=== PATIENT | female | born 1985 | race Caucasian/White ===

== ENCOUNTER 2016-09-21 12:47 | Emergency (ER) | payer SELFPAY ==
[2016-09-21] MEDS ORDERED: NORMAL SALINE 10 ML SYRINGE FLUSH IVP PRN (13:02)
[2016-09-21] MEDS ORDERED: ONDANSETRON 4 MG/2 ML VIAL IVP ONE (13:02)
[2016-09-21] MEDS ORDERED: Sodium Chloride 0.9% 1,000 ML PRIMARY IV ONE (13:02)
[2016-09-21] MEDS ORDERED: KETOROLAC 15 MG/1 ML VIAL IVP ONE (13:02)
[2016-09-21 13:07] VITALS: RESP 16; TEMP 97.1
--- NOTE | 2016-09-21 13:10 | PDOC ---
Abdomen/Flank HPI - General Chief Complaint: Abdomen Pain Stated Complaint: ONGOING RT SIDE ABD PAIN Date Seen by Provider: 09/21/16 Time Seen by Provider: 13:00 Source: POSITIVE: Patient Exam Limitations: POSITIVE: No limitations Nurse's Notes Reviewed & Considered: Yes - History of Present Illness Initial Comments: The patient is a 31-year-old female who presents to the emergency department with right upper quadrant abdominal pain. She states that intermittently over the past several months she has had a sharp pain in her right upper abdomen. This generally occurs at random times during the day. She states that she woke up at approximately 5 AM this morning with pain in the right upper quadrant. She describes this as a sharp pain that radiates through to her back. When the pain is sharp and is also worsened with taking a deep breath. She currently describes just a dull ache in that general area. She has some associated nausea. She states that over the past several months this pain does not seem to be exacerbated by eating or with certain foods. She has some cough which she relates to her smoking. She denies any recent pain or swelling in her legs other than she states her legs have been sore from working recently. She does smoke. She does not use any form of estrogen. She has had previous hysterectomy. She denies any urinary symptoms. She denies any change in BM. She has had previous hysterectomy and and denies other abdominal surgeries. - Patient Home Medications Home Medications: Home Medications Albuterol Neb Soln 0.021% 1 unit NEB Q4-6HRSPRN PRN unit 10/11/15 Albuterol Sulfate [Proair Hfa] 2 puff INH Q4-6H PRN inh 10/11/15 HYDROcodone/APAP 5/325 Tab [[place] 5/325 Tab] 1 each PO Q6H PRN #5 tablet Omeprazole 20 mg PO BID #30 cap 09/21/16 - Patient Allergies Allergies/Adverse Reactions: Allergies Allergy/AdvReac Type Severity Reaction Status Date / Time codeine [Codeine] Allergy Intermediate ITCHING Verified 09/21/16 12:55 latex Allergy Intermediate VOMITING Verified 09/21/16 12:55 tramadol Allergy Intermediate VOMITING/SWELLING/RINGING Verified 09/21/16 12:55 IN EARS Past Medical History - heen HEENT History: Other (please comment) Additional HEENT History: HX OF NYSTAGMUS Cardiovascular History: Denies History Additional Cardiovasular History: hx dehydration often Respiratory History: Asthma, Shortness of Breath Gastrointestinal History: GERD Genitourinary History: Kidney Stones Endocrine History: Denies History Musculoskeletal History: Back Pain Prosthesis or Implant: No Additional Musculoskeletal History: HX OF SCOLIOSIS Neurological History: Migraines, Motion Sickness Additional Neurological History: HX OF MIGRAINES EVERY TWO TO THREE MONTHS CAUSES NAUSEA AND VOMITING Blood Disorders: Denies History Psychiatric History: Depression, Anxiety Disorders, Self-Harm Disorders History of Sexually Transmitted Diseases: No Obstetrical History: Delivery Cancer History: Denies History In Past Year Been Physically Harmed or Verbally Threatened: No History of MDRO: No History of Other Communicable Diseases: No Tobacco Use: Current Every Day Smoker Alcohol Use: Rarely Substance Use Type: Marijuana, Methamphetamines, Other (please comment) Previous Surgical History: Yes Type / Date of Surgery: C SECTION, hyst, wisdom teeth Anesthesia Reactions: No Malignant Hyperthermia: No Significant Family History: Cancer Additional Family History: MOTHER HAS COLON CA Past Medical History Reviewed: Reviewed - No Changes ROS - Limitations ROS Limitations: No Limitations Constitution: DENIES: Chills, Fever Cardiovascular: REPORTS: Denies Cardiac Symptoms Respiratory: REPORTS: Cough Non Productive, Hurts To Breathe. DENIES: Shortness Of Breath Neurological: REPORTS: Denies Neuro Symptoms Gastrointestinal: REPORTS: Abdominal Pain, Nausea. DENIES: Vomitting, Diarrhea , Black Stools, Bloody Stools Musculoskeletal: REPORTS: Denies MS Symptoms Genitourinary: REPORTS: Flank Pain (Right side). DENIES: Dysuria, Hematuria, Difficulty Urinating Eyes: REPORTS: Denies Symptoms ENT: REPORTS: Denies Symptoms Skin: DENIES: Rash Abdominal/Flank Pain PE - General Appearance General Appearance: POSITIVE: Alert, Cooperative, No Acute Distress - HEENT HEENT: POSITIVE: Head Inspection Nml - Respiratory Respiratory: POSITIVE: No Respiratory Distress, Breath Sounds Normal - Cardiovascular Cardiovascular: POSITIVE: Regular Rate and Rhythm, Heart Sounds Normal Peripheral Pulses: Dorsalis-pedis (R): 2+, Dorsalis-pedis (L): 2+ - Abdomen Abdomen: Soft: (All Quadrants), Normal Bowel Sounds: (All Quadrants), No Guarding: (All Quadrants), No Rebound: (All Quadrants), No Distention: (All Quadrants) Additional Abdominal Details: She does have some tenderness in the right upper quadrant and positive Zaragoza's sign, also tender in the right CVA region - Skin Skin: POSITIVE: Intact, No Rash - Extremities Extremity: Normal ROM: (All Extremities), Normal Inspection: (All Extremities) - Neurological Neurological: POSITIVE: Oriented X3, Motor Normal, Sensation Normal Abdomen Progress - Results Reviewed by me Xrays/CTs/US Reviewed by me: Yes Discussed with Radiologist: Yes Radiology Findings: CT scan of the abdomen and pelvis reveals inflammatory changes at the junction between the antrum of the stomach and the duodenum, she does have moderate constipation, gallbladder and kidneys appear normal, no other acute findings per radiologist. Lab Results Reviewed: Yes Lab Results:: Laboratory Results 09/21/16 09/21/16 Range/Units 13:05 13:10 WBC 6.23 (4.8-10.8) 10^3/uL RBC 4.53 (4.20-5.40) 10^6/uL Hgb 14.6 (12.0-16.0) g/dL Hct 41.8 (37.0-47.0) % MCV 92.3 (81-99) FL MCH 32.2 H (27-31) PG MCHC 34.9 (33-37) g/dL RDW Std Deviation 39.5 (39-50) fL RDW Coeff of Manpreet 11.9 (11.5-14.5) % Plt Count 215 (140-350) 10*3/uL MPV 10.2 (7.4-12.2) FL Immature Gran % (Auto) 0.2 (0-5) % Neut % (Auto) 53.7 (50-80) % Lymph % (Auto) 37.6 (10-50) % Mcmullen % (Auto) 7.7 (5-15) % Eos % (Auto) 0.6 (0-8) % Baso % (Auto) 0.2 (0-1) % Immature Gran # (Auto) 0.01 10*3/UL Neut # (Auto) 3.35 10*3/UL Lymph # (Auto) 2.34 10*3/uL Mcmullen # (Auto) 0.48 (0.3-0.8) 10*3/UL Eos # (Auto) 0.04 10*3/UL Baso # (Auto) 0.01 10*3/UL WBC Morphology Comment Normal morphology (NORM) Plt Morphology Comment Normal morphology (NORM) RBC Morph Comment Normal morphology (NORM) D-Dimer < 0.19 (0.00-0.59) mg/L Sodium 138 (135-145) meq/L Potassium 3.7 L (3.8-5.2) meq/L Chloride 105 (98-112) meq/L Carbon Dioxide 24 (23-33) meq/L Anion Gap 9 (5-20) BUN 12 (7-22) mg/dL Creatinine 0.6 (0.50-1.20) mg/dL Estimated GFR > 60 (>60 ml/min/1.73m(2)) BUN/Creatinine Ratio 20.00 (6-20) Glucose 81 (78-110) mg/dL Calculated Osmolality 284.0 (267-292) mOsm/kg Calcium 9.1 (8.7-10.7) mg/dL Total Bilirubin 1.2 (0.3-1.2) mg/dL AST 18 (8-39) IU/L ALT 21 (9-52) IU/L Alkaline Phosphatase 57 (38-126) IU/L C-Reactive Protein < 0.5 (0.0-0.9) mg/dL Total Protein 7.6 (6.1-8.0) g/dL Albumin 4.4 (3.5-4.8) g/dL Globulin 3.2 (2.50-4.10) g/dL Albumin/Globulin Ratio 1.30 (1.3-2.0) mg/g Amylase 46 (30-110) U/L Lipase 66 (23-300) IU/L Ur Collection Type Clean catch urine Urine Color Yellow Urine Clarity Clear (CLEAR) Urine pH 7.0 (5.0-8.5) Ur Specific Stephens 1.020 (1.005-1.030) Urine Protein Negative (NEG) mg/dl Urine Glucose (UA) Negative (NEG) mg/dL Urine Ketones 15 (NEG) Urine Occult Blood Trace-intact H (NEG) Urine Nitrate Negative (NEG) Urine Bilirubin Negative (NEG) Urine Urobilinogen 0.2 (0.2) EU/dL Ur Leukocyte Esterase Negative (NEG) Urine RBC 2-3 (NONE) /hpf Urine WBC 2-3 (NONE) Ur Squamous Epith Cells Few (NONE) Ur Renal Epithelial Cell None (NONE) Urine Crystals None Urine Bacteria Rare (NONE) Urine Casts None (NONE) Urine Mucus Moderate (NONE) Urine Trichomonas None (NONE) Urine Yeast None (NONE) Ur Culture Indicated? Culture not set - Patient's Progress MDM / ED Course: An IV was established and she did receive Zofran 4 mg and Toradol 15 mg IV. She continued to have pain and received morphine 2 mg IV. Blood work and urinalysis are unremarkable except for a very slight microscopic hematuria with 1-3 RBCs per high-power field. CT scan of the abdomen and pelvis revealed a normal-appearing gallbladder and no evidence of kidney stone. She did have inflammatory changes at the antrum of the stomach near the junction with the duodenum. In addition she did have moderate constipation per radiologist. Findings were discussed with the patient. At this point most of her pain is likely explained from the gastritis. She was given Protonix 40 mg IV and will be continued on omeprazole 20 mg twice a day for 2 weeks. She was advised to limit NSAIDs, caffeine and alcohol. She was given #5 [place] as needed for pain. She will return the emergency room if increased pain, fever, vomiting or dehydration, any worsening or change in symptoms. She is advised follow-up with primary care in 1 week. - Consult Counseled: POSITIVE: Patient, RE: Lab Results, RE: Radiology Results, RE: DX, RE : Need for F/U Patient Care Time - Estimated PCT Patient Care Time (In Minutes): 30 Vital Signs - Recent Vital Signs Vital Signs: Vital Signs (Last 8 hours) Temp Pulse Resp BP Pulse Ox 09/21/16 12:58 97.1 F 92 16 102/68 93 - VS Reviewed Vital Signs Reviewed: Yes Discharge Clinical Impression: Abdominal pain, Gastritis Discharge Disposition: Discharged to Home Condition: Good Prescriptions / Orders: HYDROcodone/APAP 5/325 Tab [[place] 5/325 Tab] 1 each PO Q6H PRN #5 tablet PRN Reason: Pain Omeprazole 20 mg PO BID #30 cap Patient Instructions Given at Discharge: Gastritis (ED), Acute Abdominal Pain ( ED) Additional Instructions: Your blood work including blood counts, liver enzymes, pancreas enzymes, kidney function and blood test screening for blood clots were all normal. The urine showed a very small amount of blood which is likely insignificant. The CAT scan did not show any evidence of gallstones or kidney stones. There was some inflammation at the junction of your stomach with the small intestine. This is the most likely cause of your pain. Recommend taking omeprazole 20 mg twice a day for 2 weeks which is an acid medicine. In addition recommend limiting caffeine, alcohol and aspirin products. You've been given a prescription for # 5 [place] 5/325 as needed for pain. Return to the emergency room if increased pain, fever or vomiting, dehydration, any worsening or change in symptoms. Recommend follow-up with primary care in 1 week. Follow Up With: NONE,NONE [Primary Care Provider] -
[2016-09-21 13:20] LABS: BASOPHILS # (AUTO) 0.01 10*3/UL; BASOPHILS % (AUTO) 0.2 % (0-1); EOSINOPHILS # (AUTO) 0.04 10*3/UL; EOSINOPHILS % (AUTO) 0.6 % (0-8); HEMATOCRIT 41.8 % (37.0-47.0); HEMOGLOBIN 14.6 g/dL (12.0-16.0); LYMPHOCYTES # (AUTO) 2.34 10*3/uL; MEAN CORPUSCULAR HEMOGLOBIN 32.2 PG (27-31); MEAN CORPUSCULAR HGB CONC 34.9 g/dL (33-37); MEAN CORPUSCULAR VOLUME 92.3 FL (81-99); MEAN PLATELET VOLUME 10.2 FL (7.4-12.2); MONOCYTES # (AUTO) 0.48 10*3/UL (0.3-0.8); MONOCYTES % (AUTO) 7.7 % (5-15); NEUTROPHILS # (AUTO) 3.35 10*3/UL; NEUTROPHILS % (AUTO) 53.7 % (50-80); RED BLOOD COUNT 4.53 10^6/uL (4.20-5.40)
[2016-09-21 13:21] LABS: BILIRUBIN,URINE NEGATIVE (NEG); COLOR,URINE YELLOW; GLUCOSE, URINE (UA) NEGATIVE (NEG); NITRATE,URINE NEGATIVE (NEG); OCCULT BLOOD,URINE Trace-intact (NEG); PROTEIN,URINE NEGATIVE (NEG); UROBILINOGEN,URINE 0.2 EU/dL (0.2)
[2016-09-21 13:22] LABS: PLATELET MORPHOLOGY COMMENT NORMAL MORPHOLOGY (NORM); RBC MORPHOLOGY COMMENT NORMAL MORPHOLOGY (NORM); WBC MORPHOLOGY COMMENT NORMAL MORPHOLOGY (NORM)
[2016-09-21 13:30] LABS: BACTERIA,URINE RARE; CLARITY,URINE CLEAR (CLEAR); SQUAMOUS EPITHELIAL CELL,UR FEW; URINE SAMPLE TYPE CLEAN CATCH URINE
[2016-09-21 13:34] LABS: BLOOD UREA NITROGEN 12 mg/dL (7-22); CALCIUM 9.1 mg/dL (8.7-10.7); EST GLOMERULAR FILTRATION > 60 (>60 ml/min/1.73m(2)); LIPASE 66 IU/L (23-300); SERUM ALBUMIN 4.4 g/dL (3.5-4.8)
[2016-09-21 13:35] LABS: C-REACTIVE PROTEIN < 0.5 mg/dL (0.0-0.9)
[2016-09-21] MEDS ORDERED: MORPHINE SULFATE 2 MG/1 ML IVP ONE (15:29)
[2016-09-21] MEDS ORDERED: Pantoprazole Inj 40 MG in Normal Saline Flush 10 ML IVP ONE (15:35)
== END 2016-09-21 15:57 | disposition home or self-care (01) ==
LOC: ER 12:47
DX: K29.70 Gastritis, unspecified, without bleeding (principal); R11.0 Nausea; R10.11 Right upper quadrant pain
CPT/HCPCS: 74177; 80053; 81001; 81003; 82150; 83690; 85025; 85379; 86140; 96374; 96375; 99282; 99283; J1885; J2270; J2405; J3490; J7030

== ENCOUNTER → 2016-11-15 | Outpatient (CLI) | payer SELFPAY ==
--- NOTE | 2016-11-15 11:46 | DI ---
PA /LATERAL CHEST X-RAY, 11/15/2016 11:10 AM : Clinical History: Pain with inspiration. Previous Exam: A ring 2014 There is no acute soft tissue or bony abnormality. Heart size is normal. Lungs are clear. Mediastinal structures are normal. There are no pulmonary nodules. There is stable asymmetry of the breast shadows. IMPRESSION: Normal chest x-ray.
== END ==
LOC: MOB RAD 11:12
PROVIDERS: ATTEND Physician Assistant
DX: R07.1 Chest pain on breathing (principal); R06.2 Wheezing; R06.02 Shortness of breath; F17.200 Nicotine dependence, unspecified, uncomplicated
CPT/HCPCS: 71020